=== PATIENT | female | born 1985 | race American Indian/Alaskan Native ===

== ENCOUNTER 2019-03-23 19:32 | Emergency (ER) | payer OTHER ==
--- NOTE | 2019-03-23 20:47 | Emergency Department Report ---
ED Dysuria HPI - [facility] Chief Complaint: Extremity Injury, Lower Stated Complaint: LEFT FOOT INJURY Time Seen by Provider: 03/23/19 20:39 ED Review of Systems ROS: Stated complaint: LEFT FOOT INJURY Other details as noted in HPI ED Past Medical Hx - Past Medical History Hx Hypertension: Yes - Surgical History Additional Surgical History: gallstones,right knee, 2 vaginal deliveries - Social History Smoking Status: Never Smoker Substance Use Type: None Dysuria Exam - Exam General: Vital signs noted. No distress. Alert and acting appropriately. ED Course Vital Signs 03/23/19 19:58 Temperature 98.2 F Pulse Rate 77 Respiratory 18 Rate Blood Pressure 141/88 O2 Sat by Pulse 97 Oximetry Critical care attestation.: If time is entered above; I have spent that time in minutes in the direct care of this critically ill patient, excluding procedure time. ED Disposition Condition: Stable
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
--- NOTE | 2019-03-23 22:38 | XRay Report ---
LEFT FOOT 3 VIEWS INDICATION / CLINICAL INFORMATION: Injury with left foot pain. COMPARISON: None available. FINDINGS: BONES / JOINT(S): There is a very tiny plantar calcaneal spur. There is no evidence of fracture or di slocation. SOFT TISSUES: No significant abnormality. ADDITIONAL FINDINGS: None. IMPRESSION: No acute abnormality. Signer Name: Darrell Mullen MD Signed: 03/23/2019 10:33 PM Workstation Name: [id number]
[2019-03-23] MEDS ORDERED: IBUPROFEN PO ONE (22:47)
[2019-03-24 00:07] VITALS: BP 137/91
== END 2019-03-24 00:07 | disposition home or self-care (01) ==
LOC: ED 19:32
DX: S93.602A Unspecified sprain of left foot, initial encounter (principal); X58.XXXA Exposure to other specified factors, initial encounter; Y93.89 Activity, other specified; Y92.89 Other specified places as the place of occurrence of the external cause; Y99.8 Other external cause status
CPT/HCPCS: 99283

== ENCOUNTER 2019-08-20 17:01 | Emergency (ER) | payer OTHER ==
[2019-08-20] MEDS ORDERED: amLODIPine 5 MG TAB PO ONE (19:12)
--- NOTE | 2019-08-20 19:52 | Emergency Department Report ---
ED General Adult HPI - General Chief complaint: High BP Stated complaint: HEAD/NECK PAIN/HIGH BP Time Seen by Provider: 08/20/19 18:48 Source: patient Mode of arrival: Stretcher Limitations: No Limitations - History of Present Illness Initial comments: The patient presents to the Ed with a chief complaint of elevated blood pressure and not feeling well. The patient states her BP was greater then 190/100. The patient has a H/O of HTN and takes HCTZ 12.5mg daily. Patient states she is taking her meds as prescribed. Patient denies CP,SOB,DILL, or abdominal pain. -: Sudden Severity scale (0 -10): 0 Improves with: none Worsens with: none Associated Symptoms: denies other symptoms Treatments Prior to Arrival: none - Related Data Previous Rx's Medication Instructions Recorded Last Taken Type Ibuprofen [Motrin] 800 mg PO Q8HR PRN #25 tablet 03/23/19 Unknown Rx Amlodipine Besylate [Norvasc] 5 mg PO DAILY #14 tablet 08/20/19 Unknown Rx Allergies Allergy/AdvReac Type Severity Reaction Status Date / Time terbinafine Allergy Rash Verified 08/20/19 17:29 ED Review of Systems ROS: Stated complaint: HEAD/NECK PAIN/HIGH BP Other details as noted in HPI Comment: All other systems reviewed and negative Constitutional: denies: chills, fever Eyes: denies: eye pain, eye discharge, vision change ENT: denies: ear pain, throat pain Respiratory: denies: cough, shortness of breath, wheezing Cardiovascular: denies: chest pain, palpitations Endocrine: no symptoms reported Gastrointestinal: denies: abdominal pain, nausea, diarrhea Genitourinary: denies: urgency, dysuria, discharge Musculoskeletal: denies: back pain, joint swelling, arthralgia Skin: denies: rash, lesions Neurological: denies: headache, weakness, paresthesias Psychiatric: denies: anxiety, depression Hematological/Lymphatic: denies: easy bleeding, easy bruising ED Past Medical Hx - Past Medical History Hx Hypertension: Yes Additional medical history: GALL STONES - Surgical History Additional Surgical History: gallstones,right knee, 2 vaginal deliveries - Social History Smoking Status: Never Smoker Substance Use Type: None - Medications Home Medications: Home Medications Medication Instructions Recorded Confirmed Last Taken Type Ibuprofen [Motrin] 800 mg PO Q8HR PRN #25 tablet 03/23/19 Unknown Rx Amlodipine Besylate [Norvasc] 5 mg PO DAILY #14 tablet 08/20/19 Unknown Rx ED Physical Exam - General Limitations: No Limitations General appearance: alert, in no apparent distress - Head Head exam: Present: atraumatic, normocephalic - Eye Eye exam: Present: normal appearance, PERRL, EOMI - ENT ENT exam: Present: mucous membranes moist - Neck Neck exam: Present: normal inspection - Respiratory Respiratory exam: Present: normal lung sounds bilaterally. Absent: respiratory distress - Cardiovascular Cardiovascular Exam: Present: regular rate, normal rhythm. Absent: systolic murmur, diastolic murmur, rubs, gallop - GI/Abdominal GI/Abdominal exam: Present: soft, normal bowel sounds - Extremities Exam Extremities exam: Present: normal inspection - Back Exam Back exam: Present: normal inspection - Neurological Exam Neurological exam: Present: alert, oriented X3, CN II-XII intact. Absent: motor sensory deficit - Psychiatric Psychiatric exam: Present: normal affect, normal mood - Skin Skin exam: Present: warm, dry, intact, normal color. Absent: rash ED Course Vital Signs 08/20/19 08/20/19 08/20/19 17:29 18:09 19:55 Temperature 98 F 98.2 F Pulse Rate 87 85 71 Respiratory 20 17 Rate Blood Pressure 149/96 129/86 Blood Pressure 129/89 [Left] O2 Sat by Pulse 95 95 Oximetry ED Medical Decision Making - Lab Data Result diagrams: 08/20/19 19:16 Lab Results 08/20/19 Range/Units 19:16 Sodium 137 (137-145) mmol/L Potassium 3.6 (3.6-5.0) mmol/L Chloride 102.6 (98-107) mmol/L Carbon Dioxide 18 L (22-30) mmol/L Anion Gap 20 mmol/L BUN 13 (7-17) mg/dL Creatinine 0.8 (0.7-1.2) mg/dL Estimated GFR > 60 ml/min BUN/Creatinine Ratio 16 % Glucose 85 (65-100) mg/dL Calcium 9.3 (8.4-10.2) mg/dL - Medical Decision Making Discussed results and plan of care with patient Critical care attestation.: If time is entered above; I have spent that time in minutes in the direct care of this critically ill patient, excluding procedure time. ED Disposition Clinical Impression: HTN (hypertension) Disposition: DC- TO HOME OR SELFCARE Is pt being admited?: No Does the pt Need Aspirin: No Condition: Stable Instructions: Hypertension (ED) Additional Instructions: return if worse Prescriptions: Amlodipine Besylate [Norvasc] 5 mg PO DAILY #14 tablet Referrals: [facility] [Provider Group] - 3-5 Days [facility] [Provider Group] - 3-5 Days [facility] [Primary Care Provider] - 3-5 Days
[2019-08-20 19:54] LABS: BUN/Creatinine Ratio 16; Blood Urea Nitrogen 13 mg/dL (7-17); Calcium 9.3 mg/dL (8.4-10.2); Hemolysis Index 8
[2019-08-20 20:43] VITALS: BP 131/83
== END 2019-08-20 20:43 | disposition home or self-care (01) ==
LOC: ED 17:01
DX: I10 Essential (primary) hypertension (principal); Z88.6 Allergy status to analgesic agent
CPT/HCPCS: 36415; 80048; 93005; 93010